=== PATIENT | female | born 1970 | race Caucasian/White ===

== ENCOUNTER 2018-02-27 20:25 | Day surgery (SDC) | payer OTHER ==
[~2018-02-27] VITALS: Ht 170.2 cm; Wt 116.0 kg
[~2018-02-27 20:25] MED LIST: FOLI-17 PO; IBUP-1222 PO; IRON1TAB62 PO; OXYC5SOL8 PO; PREN1TAB56 PO
[2018-02-27 22:54] LABS: MEAN CORPUSCULAR VOLUME 81.7 fL (80-100); MEAN PLATELET VOLUME 8.3 fL (7.4-10.4); PLATELET COUNT 226 x10^3/uL (130-400); RED BLOOD COUNT 4.54 x10^6/uL (3.82-5.3)
[2018-02-27 23:06] LABS: ALANINE AMINOTRANSFERASE 16 U/L (12-78); ANION GAP 7 mmol/L (5-15); CALCIUM 8.4 mg/dL (8.5-10.1); CHLORIDE 108 mmol/L (98-107); CREATININE 0.77 mg/dL (0.55-1.02)
[2018-02-27 23:07] LABS: MD YES
[2018-02-27 23:11] LABS: ALKALINE PHOSPHATASE 58 U/L (45-117); ANISOCYTOSIS 1+; BASOS#(MANUAL) 0.07 x10^3/uL (0-0.1); BASOS% (MANUAL) 1 % (0-1); BILIRUBIN,TOTAL 0.6 mg/dL (0.2-1.0); EOS% (MANUAL) 4 % (1-7); LYMPH#(MANUAL) 3.26 x10^3/uL (1-3.4); LYMPHS% (MANUAL) 44 % (22-44); MONOS#(MANUAL) 0.37 x10^3/uL (0.3-2.7); MONOS% (MANUAL) 5 % (2-9); OVALOCYTES 1+; REACTIVE LYMPHS # (MANUAL) 0.22 x10^3/uL (0-0); REACTIVE LYMPHS % (MANUAL) 3 % (0-0); SEG#(MANUAL) 3.18 x10^3/uL (1.8-6.8); SEGS% (MANUAL) 43 % (42-75)
[2018-02-27 23:13] LABS: <PLATELET ESTIMATE> ADEQUATE; <PLT MORPHOLOGY> NORMAL PLT MORPH; ECHINOCYTES 1+; POLYCHROMASIA 1+
[2018-02-27 23:16] LABS: MICROSCOPIC NOT IND
[2018-02-27 23:17] LABS: CULTURE INDICATED? NO
[2018-02-28] MEDS ORDERED: OMNIPAQUE 350 MG/ML, 100ML BOTTLE ONE (00:16)
[2018-02-28] MEDS ORDERED: HYDROmorphone 1 MG/ML, 1ML ONE (01:06)
[2018-02-28] MEDS ORDERED: HYDROmorphone 1 MG/ML, 1ML IVPush PRN (01:30)
[2018-02-28] MEDS ORDERED: SODIUM CHLORIDE 0.9% 1,000 ML IV ONE (02:45)
[2018-02-28] MEDS ORDERED: PROCHLORPERAZINE 5 MG/ML, 2ML IVPush PRN (03:00)
[2018-02-28 04:00] VITALS: BP 89/61
[2018-02-28 07:45] VITALS: BP 99/61
[2018-02-28] MEDS: MORPHINE SULFATE 4 MG/ML, 1ML IVPush PRN ×2 (07:48→12:40)
[2018-02-28 13:20] LABS: MICROSCOPIC INDICATED
[2018-02-28 13:52] LABS: CULTURE INDICATED? NO
[2018-02-28] MEDS ORDERED: EPINEPHRINE 1 MG/ML, 1ML ONE (14:59)
[2018-02-28] MEDS ORDERED: BUPIVACAINE/PF 0.25% ONE (14:59)
[2018-02-28] MEDS ORDERED: MIDAZOLAM 1 MG/ML, 2ML ONE (15:12)
[2018-02-28] MEDS ORDERED: FENTANYL PF 100 MCG/2ML ONE (15:12)
[2018-02-28] MEDS ORDERED: PROPOFOL 10 MG/ML, 20ML ONE (15:53)
[2018-02-28] MEDS ORDERED: CEFAZOLIN 1,000 MG ONE (15:53)
[2018-02-28] MEDS ORDERED: DEXAMETHASONE 4 MG/ML, 1ML ONE (15:53)
[2018-02-28] MEDS ORDERED: ONDANSETRON 2MG/ML, 2ML ONE (15:54)
[2018-02-28] MEDS ORDERED: SUCCINYLCHOLINE 20 MG/ML, 10ML ONE (15:54)
[2018-02-28] MEDS ORDERED: DIPHENHYDRAMINE 50 MG/ML, 1ML IVPush PRN (16:30)
[2018-02-28] MEDS ORDERED: ALBUTEROL/IPRATROPIUM 2.5MG/0.5MG, 3 ML NPPB PRN (16:30)
[2018-02-28] MEDS ORDERED: FENTANYL PF 100 MCG/2ML IV PRN (16:30)
[2018-02-28] MEDS ORDERED: ACETAMINOPHEN 325 MG TABLET PO PRN (16:30)
[2018-02-28] MEDS ORDERED: MIDAZOLAM 1 MG/ML, 2ML IV PRN (16:30)
[2018-02-28] MEDS ORDERED: MEPERIDINE/PF 25MG/0.5ML IVPush PRN (16:30)
[2018-02-28] MEDS ORDERED: MORPHINE SULFATE 4 MG/ML, 1ML IVPush PRN ×2 (16:30)
[2018-02-28] MEDS ORDERED: DIAZEPAM 5 MG/ML, 2ML IVPush PRN (16:30)
[2018-02-28] MEDS ORDERED: PROMETHAZINE 25 MG/ML, 1ML IV PRN (16:30)
[2018-02-28] MEDS ORDERED: OXYcodone 5 MG/5 ML ORAL.SOL UDC PO PRN (16:30)
[2018-02-28] MEDS ORDERED: EPHEDRINE 50 MG/ML, 1ML IM PRN (16:30)
[2018-02-28] MEDS ORDERED: hydrALAzine 20 MG/ML, 1ML IV PRN (16:30)
[2018-02-28] MEDS ORDERED: LABETALOL 5MG/ML, 20ML IV PRN (16:30)
[2018-02-28 17:15] VITALS: BP 102/65
[2018-02-28] MEDS ORDERED: ONDANSETRON 2MG/ML, 2ML IVPush PRN (18:00)
[2018-02-28 19:46] VITALS: BP 92/49
[2018-02-28] MEDS: HYDROcodone/APAP 5/325 TABLET PO PRN ×2 (19:56→20:22)
[2018-03-01] VITALS: BP 106/62
[2018-03-01] MEDS: HYDROcodone/APAP 5/325 TABLET PO PRN (01:08)
[2018-03-01 04:03] VITALS: BP 86/42
[2018-03-01] MEDS: OXYcodone 5 MG/5 ML ORAL.SOL UDC PO PRN ×2 (07:48→11:55)
[2018-03-01 08:00] VITALS: BP 90/65
[2018-03-01] MEDS ORDERED: PRENATAL VIT/IRON/FA 1 EACH TABLET PO SCH (09:00)
[2018-03-01] MEDS ORDERED: HYDR-3240 PO (11:17)
== END 2018-03-01 12:45 | disposition home or self-care (01) ==
LOC: ED 23:59 → UNDOADMIN 02-28 02:45 → EDIP 02-28 02:45 → 4NOR 02-28 03:42 → OR 02-28 15:50 → UNDODISIN 03-01 12:45
PROVIDERS: ATTEND Surgery
DX: K42.0 Umbilical hernia with obstruction, without gangrene (principal); Z88.0 Allergy status to penicillin
CPT/HCPCS: 36415; 49587; 74177; 80053; 81001; 81003; 83690; 84703; 85025; 96374; 96375; 99285; J0171; J0330; J0690; J1100; J1170; J2250; J2405; J2704; J3010; J3490; J7030; Q9967

== ENCOUNTER 2018-04-21 06:55 | Day surgery (SDC) | payer OTHER ==
[~2018-04-21] VITALS: Ht 170.2 cm; Wt 105.2 kg
[~2018-04-21 06:55] MED LIST changes: +BUPIVACAINE/PF 0.5% ONE; +EPINEPHRINE 1 MG/ML, 1ML ONE; +HYDR-3240 PO
[2018-04-21 07:35] VITALS: BP 105/80
[2018-04-21] MEDS ORDERED: ZOLP-413 PO (07:48)
[2018-04-21] MEDS ORDERED: CYCL5TAB PO (07:48)
[2018-04-21] MEDS ORDERED: GABA300C10 PO (07:48)
[2018-04-21] MEDS ORDERED: OxyconTIN ER 20 MG TAB.ER PO ONE (08:00)
[2018-04-21] MEDS ORDERED: ONDANSETRON ODT 8 MG PO ONE (08:00)
[2018-04-21] MEDS ORDERED: SCOPOLAMINE PATCH, 1.5MG PATCH.TD72 TD ONE (08:00)
[2018-04-21] MEDS ORDERED: GABAPENTIN 300 MG CAPSULE PO ONE (08:00)
[2018-04-21] MEDS ORDERED: LACTATED RINGERS 1,000 ML IV SCH (08:00)
[2018-04-21] MEDS ORDERED: ACETAMINOPHEN 500 MG TABLET PO ONE ×2 (08:00→08:30)
[2018-04-21] MEDS ORDERED: FENTANYL PF 250 MCG/5ML ONE (08:03)
[2018-04-21] MEDS ORDERED: MIDAZOLAM 1 MG/ML, 2ML ONE (08:03)
[2018-04-21] MEDS ORDERED: DEXAMETHASONE 4 MG/ML, 1ML ONE ×2 (08:04)
[2018-04-21] MEDS ORDERED: ROCURONIUM 10MG/ML,5ML ONE (08:05)
[2018-04-21] MEDS ORDERED: PROPOFOL 10 MG/ML, 20ML ONE (08:06)
[2018-04-21] MEDS ORDERED: GLYCOPYRROLATE 0.4 MG/2 ML, 2ML ONE (08:07)
[2018-04-21] MEDS ORDERED: NEOSTIGMINE 1 MG/ML, 10ML ONE (08:07)
[2018-04-21] MEDS ORDERED: CEFOTETAN PMX 2GM/50ML 50 ML ONE (09:54)
[2018-04-21] MEDS ORDERED: LABETALOL 5MG/ML, 20ML IV PRN (10:30)
[2018-04-21] MEDS ORDERED: hydrALAzine 20 MG/ML, 1ML IV PRN (10:30)
[2018-04-21] MEDS ORDERED: PROMETHAZINE 12.5 MG SUPP PR PRN (10:30)
[2018-04-21] MEDS ORDERED: PROMETHAZINE 25 MG/ML, 1ML IV PRN (10:30)
[2018-04-21] MEDS ORDERED: HYDROmorphone 1 MG/ML, 1ML IV PRN (10:30)
[2018-04-21] MEDS ORDERED: PROMETHAZINE 25 MG SUPP PR PRN (10:30)
[2018-04-21] MEDS ORDERED: MORPHINE SULFATE 4 MG/ML, 1ML IVPush PRN (10:30)
[2018-04-21] MEDS ORDERED: MEPERIDINE/PF 25MG/0.5ML IVPush PRN (10:30)
[2018-04-21] MEDS ORDERED: ONDANSETRON ODT 8 MG PO PRN (10:30)
[2018-04-21] MEDS ORDERED: FENTANYL PF 100 MCG/2ML ONE ×2 (11:15→11:49)
[2018-04-21] MEDS: FENTANYL PF 100 MCG/2ML IV PRN ×2 (11:50→11:59)
[2018-04-21] MEDS ORDERED: OXYcodone 5 MG/5 ML ORAL.SOL UDC ONE (11:59)
[2018-04-21] MEDS: OXYcodone 5 MG/5 ML ORAL.SOL UDC PO PRN ×2 (12:00→15:19)
[2018-04-21] MEDS ORDERED: MEPERIDINE/PF 50 MG/ML ONE (12:14)
== END 2018-04-21 16:15 ==
LOC: OUT 06:55
PROVIDERS: ATTEND Surgery
DX: K81.1 Chronic cholecystitis (principal); Z88.0 Allergy status to penicillin
CPT/HCPCS: 47562; 88304; J0171; J1100; J2175; J2250; J2704; J2710; J3010; J3490; J7120; Q0162; S0074

== ENCOUNTER 2018-04-23 10:09 | Emergency (ER) | payer OTHER ==
[~2018-04-23] VITALS: Ht 170.2 cm; Wt 107.2 kg
[~2018-04-23 10:09] MED LIST changes: -BUPIVACAINE/PF 0.5% ONE; +CYCL5TAB PO; -EPINEPHRINE 1 MG/ML, 1ML ONE; +GABA300C10 PO; +ZOLP-413 PO
[2018-04-23] MEDS ORDERED: SODIUM CHLORIDE FLUSH 10ML SYR IVF ONE ×2 (10:30→11:30)
[2018-04-23 10:55] LABS: BASOPHILS # (AUTO) 0.03 x10^3/uL (0-0.1); BASOPHILS % (AUTO) 0 % (0-1); EOSINOPHILS # (AUTO) 0.08 x10^3/uL (0-0.4); EOSINOPHILS % (AUTO) 1 % (1-7); LYMPHOCYTES # (AUTO) 2.67 x10^3/uL (1-3.4); LYMPHOCYTES % (AUTO) 32 % (22-44); MD NO; MEAN CORPUSCULAR HGB CONC 32.1 g/dL (32.4-35.8); MEAN CORPUSCULAR VOLUME 81.1 fL (80-100); MEAN PLATELET VOLUME 8.2 fL (7.4-10.4); MONOCYTES # (AUTO) 0.61 x10^3/uL (0.2-0.8); MONOCYTES % (AUTO) 7 % (2-9); NEUTROPHILS # (AUTO) 4.97 x10^3/uL (1.8-6.8); NEUTROPHILS % (AUTO) 59 % (42-75); PLATELET COUNT 247 x10^3/uL (130-400); RED CELL DISTRIBUTION WIDTH 17.2 % (9.6-15.2)
[2018-04-23 10:59] LABS: INTERNATIONAL NORMALIZED RATIO 0.94 (0.93-1.1); PROTHROMBIN TIME 9.8 Seconds (9.6-11.5)
[2018-04-23 11:09] LABS: ALANINE AMINOTRANSFERASE 29 U/L (12-78); ALBUMIN 3.3 g/dL (3.4-5.0); ANION GAP 6 mmol/L (5-15); CALCIUM 8.5 mg/dL (8.5-10.1); CHLORIDE 106 mmol/L (98-107); CREATININE 0.84 mg/dL (0.55-1.02)
[2018-04-23 11:12] LABS: ALKALINE PHOSPHATASE 58 U/L (45-117); BILIRUBIN,TOTAL 0.6 mg/dL (0.2-1.0); TOTAL PROTEIN 7.6 g/dL (6.4-8.2)
[2018-04-23 11:53] LABS: MICROSCOPIC NOT IND
[2018-04-23 12:09] LABS: CULTURE INDICATED? NO
[2018-04-23] MEDS ORDERED: OMNIPAQUE 350 MG/ML, 100ML BOTTLE ONE (12:58)
[2018-04-23] MEDS ORDERED: ONDANSETRON 2MG/ML, 2ML ONE (13:22)
[2018-04-23] MEDS ORDERED: MORPHINE SULFATE 4 MG/ML, 1ML ONE (13:23)
[2018-04-23] MEDS ORDERED: MORPHINE SULFATE 4 MG/ML, 1ML IVPush PRN (13:30)
[2018-04-23] MEDS ORDERED: ONDANSETRON 2MG/ML, 2ML IVPush ONE (13:30)
[2018-04-23 14:09] VITALS: BP 113/66
== END 2018-04-23 14:14 | disposition home or self-care (01) ==
LOC: ED 14:07
DX: R10.84 Generalized abdominal pain (principal); Z90.49 Acquired absence of other specified parts of digestive tract
CPT/HCPCS: 36415; 36556; 74177; 80053; 81003; 83690; 84703; 85025; 85610; 96374; 96375; 99285; J2405; Q9967

== ENCOUNTER 2018-08-01 13:44 | Emergency (ER) | payer OTHER ==
[~2018-08-01] VITALS: Ht 170.2 cm; Wt 98.5 kg
[2018-08-01 14:47] LABS: BASOPHILS # (AUTO) 0.05 x10^3/uL (0-0.1); BASOPHILS % (AUTO) 1 % (0-1); EOSINOPHILS # (AUTO) 0.08 x10^3/uL (0-0.4); EOSINOPHILS % (AUTO) 1 % (1-7); LYMPHOCYTES # (AUTO) 3.15 x10^3/uL (1-3.4); LYMPHOCYTES % (AUTO) 37 % (22-44); MD NO; MEAN CORPUSCULAR HEMOGLOBIN 27.1 pg (27.0-34.8); MEAN CORPUSCULAR HGB CONC 33.1 g/dL (32.4-35.8); MEAN CORPUSCULAR VOLUME 81.8 fL (80-100); MEAN PLATELET VOLUME 8.4 fL (7.4-10.4); MONOCYTES # (AUTO) 0.61 x10^3/uL (0.2-0.8); MONOCYTES % (AUTO) 7 % (2-9); NEUTROPHILS % (AUTO) 55 % (42-75); PLATELET COUNT 271 x10^3/uL (130-400); RED BLOOD COUNT 4.34 x10^6/uL (3.82-5.3); RED CELL DISTRIBUTION WIDTH 16.4 % (9.6-15.2)
[2018-08-01 14:59] LABS: ALANINE AMINOTRANSFERASE 15 U/L (12-78); ALBUMIN 3.3 g/dL (3.4-5.0); ANION GAP 8 mmol/L (5-15); CALCIUM 8.5 mg/dL (8.5-10.1); CHLORIDE 110 mmol/L (98-107); CREATININE 0.65 mg/dL (0.55-1.02)
[2018-08-01 15:02] LABS: ALKALINE PHOSPHATASE 63 U/L (45-117); BILIRUBIN,TOTAL 0.4 mg/dL (0.2-1.0); TOTAL PROTEIN 7.3 g/dL (6.4-8.2)
[2018-08-01 15:40] VITALS: BP 125/76
[2018-08-01 15:51] LABS: HCG UR SG 1.028 (1.003-1.030); MICROSCOPIC AUTO
[2018-08-01 16:00] LABS: CULTURE INDICATED? NO
[2018-08-01] MEDS ORDERED: OMNIPAQUE 350 MG/ML, 100ML BOTTLE ONE (16:08)
== END 2018-08-01 16:53 | disposition home or self-care (01) ==
LOC: ED 16:47
DX: K43.2 Incisional hernia without obstruction or gangrene (principal); Z90.49 Acquired absence of other specified parts of digestive tract
CPT/HCPCS: 36415; 74177; 80053; 81001; 81025; 83690; 85025; 99285; Q9967

== ENCOUNTER 2018-09-01 07:34 | Day surgery (SDC) | payer OTHER ==
[~2018-09-01] VITALS: Ht 170.2 cm; Wt 97.0 kg
[2018-09-01 08:21] VITALS: BP 111/78
[2018-09-01 08:47] LABS: HCG UR SG 1.032 (1.003-1.030)
[2018-09-01] MEDS ORDERED: LACTATED RINGERS 1,000 ML IV SCH (09:00)
[2018-09-01] MEDS ORDERED: BUPIVACAINE/PF-EPI 0.5% 1:200K ONE (09:40)
[2018-09-01] MEDS ORDERED: MIDAZOLAM 1 MG/ML, 2ML ONE (10:39)
[2018-09-01] MEDS ORDERED: FENTANYL PF 250 MCG/5ML ONE (10:39)
[2018-09-01] MEDS ORDERED: ONDANSETRON 2MG/ML, 2ML ONE ×2 (10:40→12:40)
[2018-09-01] MEDS ORDERED: PROPOFOL 10 MG/ML, 20ML ONE ×2 (10:40)
[2018-09-01] MEDS ORDERED: CEFAZOLIN 1,000 MG ONE (10:40)
[2018-09-01] MEDS ORDERED: GLYCOPYRROLATE 0.2MG/1ML, 5ML ONE (10:40)
[2018-09-01] MEDS ORDERED: ROCURONIUM 10MG/ML,5ML ONE (10:40)
[2018-09-01] MEDS ORDERED: NEOSTIGMINE 1 MG/ML, 10ML ONE (10:40)
[2018-09-01] MEDS ORDERED: DEXAMETHASONE 4 MG/ML, 1ML ONE (10:40)
[2018-09-01] MEDS ORDERED: ONDANSETRON ODT 8 MG PO PRN (11:00)
[2018-09-01] MEDS ORDERED: hydrALAzine 20 MG/ML, 1ML IV PRN (11:00)
[2018-09-01] MEDS ORDERED: PROMETHAZINE 25 MG/ML, 1ML IM PRN ×2 (11:00)
[2018-09-01] MEDS ORDERED: OXYcodone 5 MG/5 ML ORAL.SOL UDC PO PRN (11:00)
[2018-09-01] MEDS ORDERED: LABETALOL 5MG/ML, 20ML IV PRN (11:00)
[2018-09-01] MEDS ORDERED: ONDANSETRON 2MG/ML, 2ML IV PRN (11:00)
[2018-09-01] MEDS ORDERED: MEPERIDINE/PF 25MG/0.5ML IVPush PRN (11:00)
[2018-09-01] MEDS ORDERED: PROMETHAZINE 12.5 MG SUPP PR PRN (11:00)
[2018-09-01] MEDS ORDERED: MORPHINE SULFATE 4 MG/ML, 1ML IVPush PRN (11:00)
[2018-09-01] MEDS ORDERED: PROMETHAZINE 25 MG/ML, 1ML IV PRN (11:00)
[2018-09-01] MEDS ORDERED: FENTANYL PF 100 MCG/2ML ONE (12:10)
[2018-09-01] MEDS ORDERED: HYDROmorphone 2 MG/ML, 1ML ONE (12:11)
[2018-09-01] MEDS: HYDROmorphone 2 MG/ML, 1ML IV PRN ×4 (12:12→13:00)
[2018-09-01] MEDS: FENTANYL PF 100 MCG/2ML IV PRN ×2 (12:18→12:29)
[2018-09-01] MEDS ORDERED: OXYcodone 5 MG/5 ML ORAL.SOL UDC ONE (12:25)
== END 2018-09-01 16:15 | disposition home or self-care (01) ==
LOC: OUT 07:34
PROVIDERS: ATTEND Surgery
DX: K42.9 Umbilical hernia without obstruction or gangrene (principal); K21.9 Gastro-esophageal reflux disease without esophagitis; E66.01 Morbid (severe) obesity due to excess calories; Z68.33 Body mass index [BMI] 33.0-33.9, adult; Z98.890 Other specified postprocedural states; Z90.49 Acquired absence of other specified parts of digestive tract; Z88.8 Allergy status to other drugs, medicaments and biological substances; Z91.010 Allergy to peanuts; Z87.442 Personal history of urinary calculi
CPT/HCPCS: 49585; 81025; J0690; J1100; J1170; J2250; J2405; J2550; J2704; J2710; J3010; J3490; J7120; C1781